=== PATIENT | female | born 1975 | race Caucasian/White ===

== ENCOUNTER 2017-07-10 17:07 | Emergency (ER) | payer MEDICAID ==
[~2017-07-10] VITALS: Ht 154.9 cm; Wt 60.0 kg
[2017-07-10 17:18] VITALS: BP 107/72
--- NOTE | 2017-07-10 18:19 | NUR ---
Patient ambulated to [facility]. RN evaluating patient.
--- NOTE | 2017-07-10 18:20 | NUR ---
42/F PRESENT TO ER C/O COUGH AND DIFFICULTY BREATHING x 3 DAYS. HX: ANEMIA, ANXIETY AND DEPRESSION. DENIES N/V/D; SKIN IS PINK/WARM/DRY; AAOX4 WITH EVEN AND STEADY GAIT; LUNGS CLEAR BL; PATIENT STATES PAIN OF 0/10 AT THIS TIME; PATIENT POSITIONED FOR COMFORT; HOB ELEVATED; BEDRAILS UP X2; BED DOWN. ER MD MADE AWARE OF PT STATUS.
--- NOTE | 2017-07-10 19:12 | NUR ---
Pt report given to AUGUSTO CADENA. Transfer of care at this time.
--- NOTE | 2017-07-10 19:29 | NUR ---
Patient discharged with v/s stable. Written and verbal after care instructions given and explained. Patient alert, oriented and verbalized understanding of instructions. Ambulatory with steady gait. All questions addressed prior to discharge. ID band removed. Patient advised to follow up with PMD. Rx of TESSALON PERLES AND ALBUTEROL INH given. Patient educated on indication of medication including possible reaction and side effects. Opportunity to ask questions provided and answered.
[2017-07-10 19:31] VITALS: BP 129/75
== END 2017-07-10 19:29 | disposition home or self-care (01) ==
LOC: MED 17:07
DX: J40 Bronchitis, not specified as acute or chronic (principal); F41.9 Anxiety disorder, unspecified; F32.9 Major depressive disorder, single episode, unspecified; Z86.2 Personal history of diseases of the blood and blood-forming organs and certain disorders involving the immune mechanism
CPT/HCPCS: 71045; 99283

== ENCOUNTER 2020-07-03 18:11 | Emergency (ER) | payer MEDICAID, OTHER ==
[~2020-07-03] VITALS: Ht 149.9 cm; Wt 57.7 kg
[2020-07-03 18:37] VITALS: BP 119/74
[2020-07-03] MEDS ORDERED: ACETAMINOPHEN EXTRA STRENGTH 500 MG TAB PO ONE (20:45)
[2020-07-03 22:15] VITALS: BP 119/74
== END 2020-07-03 22:15 | disposition home or self-care (01) ==
LOC: MED 18:11
DX: S20.219A Contusion of unspecified front wall of thorax, initial encounter (principal); S80.01XA Contusion of right knee, initial encounter; S60.011A Contusion of right thumb without damage to nail, initial encounter; S60.021A Contusion of right index finger without damage to nail, initial encounter; M25.50 Pain in unspecified joint; V49.9XXA Car occupant (driver) (passenger) injured in unspecified traffic accident, initial encounter; Y93.89 Activity, other specified; Y92.411 Interstate highway as the place of occurrence of the external cause; Y99.8 Other external cause status
CPT/HCPCS: 71046; 73130; 73562; 99284